=== PATIENT | female | born 1975 | race Caucasian/White ===

== ENCOUNTER 2017-08-02 15:06 | Emergency (ER) | payer OTHER ==
[~2017-08-02] VITALS: Ht 154.9 cm; Wt 78.0 kg
[2017-08-02 15:15] VITALS: BP 137/38
[2017-08-02] MEDS ORDERED: AMOXICILLIN 50500 MG PO (15:22)
== END 2017-08-02 15:33 | disposition home or self-care (01) ==
LOC: M.ERS 15:06
DX: K08.89 Other specified disorders of teeth and supporting structures (principal); Z88.8 Allergy status to other drugs, medicaments and biological substances

== ENCOUNTER 2018-04-12 07:44 | Emergency (ER) | payer OTHER ==
[~2018-04-12] VITALS: Ht 160 cm; Wt 68.0 kg
[~2018-04-12 07:44] MED LIST: AMOXICILLIN 50500 MG PO
[2018-04-12 07:53] VITALS: BP 137/65
[2018-04-12] MEDS ORDERED: NORCO 5-325 TA1 EACH PO (08:08)
[2018-04-12] MEDS ORDERED: IBUPROFEN 800800 M1 PO (08:08)
[2018-04-12] MEDS ORDERED: FLEXERIL PO (08:08)
== END 2018-04-12 08:20 | disposition home or self-care (01) ==
LOC: M.ERS 07:44
DX: S39.012A Strain of muscle, fascia and tendon of lower back, initial encounter (principal); Z98.890 Other specified postprocedural states; Z88.8 Allergy status to other drugs, medicaments and biological substances; X58.XXXA Exposure to other specified factors, initial encounter; Y93.89 Activity, other specified; Y92.89 Other specified places as the place of occurrence of the external cause; Y99.8 Other external cause status

== ENCOUNTER → 2018-08-10 | Emergency (ER) | payer OTHER ==
[~2018-08-10] VITALS: Ht 154.9 cm; Wt 82.6 kg
[~2018-08-10] MED LIST changes: +FLEXERIL PO; +IBUPROFEN 800800 M1 PO; +KEFLEX500 M1 PO; +NORCO 5-325 TA1 EACH PO; +XARELTO20 MG PO
[2018-08-10 11:08] VITALS: BP 186/74
== END ==
LOC: M.ERS 10:41
DX: K04.7 Periapical abscess without sinus (principal); F17.210 Nicotine dependence, cigarettes, uncomplicated; Z88.8 Allergy status to other drugs, medicaments and biological substances; Z98.890 Other specified postprocedural states

== ENCOUNTER 2018-11-09 12:43 | Emergency (ER) | payer OTHER ==
[~2018-11-09] VITALS: Ht 154.9 cm; Wt 77.1 kg
[2018-11-09] MEDS ORDERED: NORCO 5-325 TA1 EAC1 PO (13:11)
[2018-11-09 13:22] VITALS: BP 138/90
== END 2018-11-09 13:23 | disposition home or self-care (01) ==
LOC: M.ERS 12:43
DX: T23.001A Burn of unspecified degree of right hand, unspecified site, initial encounter (principal); X19.XXXA Contact with other heat and hot substances, initial encounter; Y93.89 Activity, other specified; Y92.89 Other specified places as the place of occurrence of the external cause; Y99.8 Other external cause status; Z88.8 Allergy status to other drugs, medicaments and biological substances

== ENCOUNTER 2018-11-19 08:00 | Emergency (ER) | payer OTHER ==
[~2018-11-19] VITALS: Ht 154.9 cm; Wt 73.5 kg
[~2018-11-19 08:00] MED LIST changes: +NORCO 5-325 TA1 EAC1 PO
[2018-11-19 08:20] LABS: HEMATOCRIT 36.2 % (37.0-47.0); HEMOGLOBIN 11.2 gm/dL (12.0-15.0); MCH 22.8 pg (26.0-34.0); MCV 73.6 fL (80.0-100.0); NUCLEATED RBCS 0 /100WBC; PLATELET COUNT* 383 thou/uL (150-400); RBC 4.92 mil/uL (4.20-5.00); RDW-CV 17.3 % (10.5-14.5); WBC 10.9 thou/uL (4.0-11.0)
[2018-11-19 08:31] LABS: PROTIME 10.3 Seconds (9.20-11.50)
[2018-11-19 08:34] LABS: ALBUMIN 3.8 g/dL (3.4-5.0); ALKALINE PHOSPHATASE 85 U/L (46-116); ANION GAP 19 mmol/L (7-16); BUN 8 mg/dL (7-18); CALCIUM 9.2 mg/dL (8.5-10.1); CHLORIDE 100 mmol/L (98-107); CO2 21 mmol/L (21-32); CREATININE 1.1 mg/dL (0.6-1.3); GLUCOSE 126 mg/dL (70-99); SGOT 17 U/L (15-37); SGPT 24 U/L (30-65); SODIUM 140 mmol/L (136-145); TOTAL BILIRUBIN 0.1 mg/dL (<0.1-1.0); TOTAL PROTEIN 7.8 g/dL (6.4-8.2); TROPONIN-I LEVEL <0.06 ng/mL (<0.06)
[2018-11-19 08:35] LABS: POTASSIUM 2.6 mmol/L (3.5-5.1)
[2018-11-19 08:53] LABS: ABSOLUTE LYMPHOCYTES 3.3 thou/uL (0.8-5.3); ABSOLUTE MONOCYTES 0.7 thou/uL (0.0-1.2); ANISOCYTOSIS 2+; HYPOCHROMASIA 1+; MICROCYTES 1+
[2018-11-19 09:07] VITALS: BP 190/75
--- NOTE | 2018-11-19 15:29 | EKG ---
[place] [address] ELECTROCARDIOGRAM REPORT Name: DAVONTE VENTURA Room: [facility]#: [id number] Admission: 11/19/18 Attend Phys: Discharge: 11/19/18 Date of : 75 Report #: [id number] THIS REPORT FOR: //name// 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1975 Requested By: Kiko Darnell Order Number: [id number] MD: Augie Barajas Measurements Intervals [place] Rate: 100 P: 69 MT: 129 QRS: -12 QRSD: 93 T: 75 QT: 388 QTc: 501 Interpretive Statements Sinus tachycardia Probable anteroseptal infarct, old Minimal ST depression, lateral leads No previous ECG available for comparison Electronically Signed On 11-19-2018 15:29:26 CDT by Augie Barajas [email or web address] <ELECTRONICALLY SIGNED> By: Augie Barajas MD, [facility] 11/19/18 1529 0 0 Augie Barajas MD, FACC /EPI
== END 2018-11-19 09:07 | disposition home or self-care (01) ==
LOC: M.ERS 08:00
PROVIDERS: Family Medicine
DX: F41.0 Panic disorder [episodic paroxysmal anxiety] (principal); E87.6 Hypokalemia; Z98.890 Other specified postprocedural states; Z88.8 Allergy status to other drugs, medicaments and biological substances

== ENCOUNTER 2019-07-29 12:24 | Emergency (ER) | payer OTHER ==
[~2019-07-29] VITALS: Ht 157.5 cm; Wt 78.0 kg
[2019-07-29] MEDS ORDERED: HYDROCHLOROTHIA25 M2 PO (12:40)
[2019-07-29] MEDS ORDERED: NORVASC 2.5 MG2.5 M1 PO (12:40)
[2019-07-29] MEDS ORDERED: LIPITOR20 MG PO (12:40)
[2019-07-29 12:52] LABS: ABSOLUTE BASOPHILS 0.2 thou/uL (0.0-0.2); ABSOLUTE EOSINOPHILS 0.2 thou/uL (0.0-0.7); ABSOLUTE LYMPHOCYTES 1.9 thou/uL (0.8-5.3); ABSOLUTE MONOCYTES 0.8 thou/uL (0.0-1.2); ABSOLUTE NEUTROPHILS 10.2 thou/uL (1.6-8.1); BASOPHILS 1.2 %; EOSINOPHILS 1.3 %; HEMATOCRIT 36.9 % (37.0-47.0); LYMPHOCYTES 14.6 %; MCH 24.9 pg (26.0-34.0); MCHC 32.6 g/dL (28.0-37.0); MCV 76.4 fL (80.0-100.0); MONOCYTES 6.3 %; MPV 6.8 fl. (7.2-11.1); NUCLEATED RBCS 0 /100WBC; PLATELET COUNT* 357 thou/uL (150-400); POLYS 76.6 %; RBC 4.83 mil/uL (4.20-5.00); RDW-CV 22.3 % (10.5-14.5); WBC 13.3 thou/uL (4.0-11.0)
[2019-07-29 13:01] LABS: CALCIUM 8.9 mg/dL (8.5-10.1); CREATININE 0.9 mg/dL (0.6-1.3); POTASSIUM 3.7 mmol/L (3.5-5.1)
[2019-07-29 13:05] LABS: ALBUMIN 3.9 g/dL (3.4-5.0); TOTAL BILIRUBIN 0.3 mg/dL (<0.1-1.0); TOTAL PROTEIN 7.9 g/dL (6.4-8.2)
[2019-07-29 13:10] LABS: URINE BILIRUBIN NEGATIVE (Negative); URINE BLOOD TRACE (Negative); URINE CLARITY CLEAR; URINE COLOR YELLOW; URINE GLUCOSE-RANDOM NEGATIVE (Negative); URINE KETONES NEGATIVE (Negative); URINE LEUKOCYTES-REFLEX NEGATIVE (Negative); URINE NITRITE-REFLEX NEGATIVE (Negative); URINE PROTEIN 2+ (Negative); URINE SPECIFIC GRAVITY >= 1.030 (1.005-1.030); URINE UROBILINOGEN 0.2 E.U./dl (0.2-1.0)
[2019-07-29 13:14] LABS: BACTERIA-REFLEX 1-9 Few /HPF (None Seen); CRYSTALS None Seen /LPF (None Seen); FINE GRANULAR CASTS 0-3 Few /LPF (None Seen); HYALINE CASTS 4-10 Moderate /LPF (None Seen); MUCUS 4-6 Moderate strn/LPF (None Seen); SQUAMOUS >10 Many /LPF (0-3); URINE RBC 0-2 Rare /HPF (0-2); URINE WBC-REFLEX 0-5 Rare /HPF (0-5)
[2019-07-29 13:39] LABS: ANISOCYTOSIS 1+; PLATELET ESTIMATE ADEQUATE
[2019-07-29] MEDS ORDERED: ONDANSETRON HCL4 M2 PO (13:55)
[2019-07-29] MEDS ORDERED: ZANAFLEX4 MG PO (13:55)
[2019-07-29] MEDS ORDERED: NABUMETONE 750750 M1 PO (13:55)
[2019-07-29 14:14] VITALS: BP 148/79
== END 2019-07-29 14:15 | disposition home or self-care (01) ==
LOC: M.ERS 12:24
PROVIDERS: Nurse Practitioner Family
DX: R10.9 Unspecified abdominal pain (principal); Z98.890 Other specified postprocedural states; Z88.8 Allergy status to other drugs, medicaments and biological substances

== ENCOUNTER 2019-11-21 10:15 | Emergency (ER) | payer OTHER ==
[~2019-11-21] VITALS: Ht 154.9 cm; Wt 78.0 kg
[~2019-11-21 10:15] MED LIST changes: +HYDROCHLOROTHIA25 M2 PO; +LIPITOR20 MG PO; +NABUMETONE 750750 M1 PO; +NORVASC 2.5 MG2.5 M1 PO; +ONDANSETRON HCL4 M2 PO; +ZANAFLEX4 MG PO
[2019-11-21 10:20] VITALS: BP 154/80
[2019-11-21] MEDS ORDERED: TYLENOL WITH CO1 TA1 PO (10:53)
[2019-11-21] MEDS ORDERED: AMOXICILLIN 50500 MG PO (10:53)
== END 2019-11-21 11:24 | disposition home or self-care (01) ==
LOC: M.ERS 10:15
DX: K08.89 Other specified disorders of teeth and supporting structures (principal); I10 Essential (primary) hypertension; F17.210 Nicotine dependence, cigarettes, uncomplicated; Z98.890 Other specified postprocedural states; Z88.8 Allergy status to other drugs, medicaments and biological substances

== ENCOUNTER 2019-12-11 09:19 | Emergency (ER) | payer OTHER ==
[~2019-12-11] VITALS: Ht 154.9 cm; Wt 79.8 kg
[~2019-12-11 09:19] MED LIST changes: +TYLENOL WITH CO1 TA1 PO
[2019-12-11 09:25] VITALS: BP 196/73
[2019-12-11] MEDS ORDERED: PENICILLIN VK500 M1 PO (09:31)
[2019-12-11] MEDS ORDERED: IBUPROFEN 800800 M1 PO (09:31)
[2019-12-11] MEDS ORDERED: NORCO 5-325 TA1 EAC1 PO (09:31)
== END 2019-12-11 09:45 | disposition home or self-care (01) ==
LOC: M.ERS 09:19
DX: K02.9 Dental caries, unspecified (principal); I10 Essential (primary) hypertension; F17.210 Nicotine dependence, cigarettes, uncomplicated; Z88.8 Allergy status to other drugs, medicaments and biological substances; Z98.890 Other specified postprocedural states

== ENCOUNTER 2020-02-08 13:36 | Emergency (ER) | payer OTHER ==
[~2020-02-08] VITALS: Ht 154.9 cm; Wt 78.0 kg
[~2020-02-08 13:36] MED LIST changes: +PENICILLIN VK500 M1 PO
[2020-02-08] MEDS ORDERED: ZPAK PO (14:16)
[2020-02-08] MEDS ORDERED: LIPITOR 20 MG T20 M1 PO (14:16)
[2020-02-08] MEDS ORDERED: LISINOPRIL2.5 M1 PO (14:16)
[2020-02-08] MEDS ORDERED: HYDROCHLOROTHIA25 M1 PO (14:16)
[2020-02-08 14:50] VITALS: BP 215/80
--- NOTE | 2020-02-10 11:11 | EKG ---
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1975 Requested By: Tanja Casillas Order Number: [id number] Irena MD: Augie Barajas Measurements Intervals [place] Rate: 81 P: 50 HI: 122 QRS: 3 QRSD: 98 T: 98 QT: 386 QTc: 448 Interpretive Statements Sinus rhythm LVH with secondary repolarization abnormality Compared to ECG 11/19/2018 08:11:26 Left ventricular hypertrophy now present Early repolarization now present Sinus tachycardia no longer present Myocardial infarct finding no longer present ST (T wave) deviation no longer present Electronically Signed On 02-10-2020 11:10:25 CDT by Augie Barajas [email or web address] <ELECTRONICALLY SIGNED> By: Augie Barajas MD, FACC 02/10/20 1110 1347 1347 Augie Barajas MD, FAC /EPI
== END 2020-02-08 14:53 | disposition home or self-care (01) ==
LOC: M.ERS 13:36
DX: J98.8 Other specified respiratory disorders (principal); I10 Essential (primary) hypertension; E78.5 Hyperlipidemia, unspecified; F17.210 Nicotine dependence, cigarettes, uncomplicated; Z98.890 Other specified postprocedural states; Z88.8 Allergy status to other drugs, medicaments and biological substances

== ENCOUNTER 2020-02-14 19:42 | Emergency (ER) | payer OTHER ==
[~2020-02-14] VITALS: Ht 154.9 cm; Wt 78.0 kg
[~2020-02-14 19:42] MED LIST changes: +HYDROCHLOROTHIA25 M1 PO; +LIPITOR 20 MG T20 M1 PO; +LISINOPRIL2.5 M1 PO; +ZPAK PO
[2020-02-14] MEDS ORDERED: PREDNISONE 20 M20 M1 PO (20:09)
[2020-02-14] MEDS ORDERED: PROMETH-CODEIN 65 ML PO (20:09)
[2020-02-14 20:26] VITALS: BP 185/97
== END 2020-02-14 20:26 | disposition home or self-care (01) ==
LOC: M.ERS 19:42
DX: J40 Bronchitis, not specified as acute or chronic (principal); I10 Essential (primary) hypertension; F17.210 Nicotine dependence, cigarettes, uncomplicated; Z98.890 Other specified postprocedural states; Z88.8 Allergy status to other drugs, medicaments and biological substances

== ENCOUNTER 2020-04-12 10:54 | Emergency (ER) | payer OTHER ==
[~2020-04-12] VITALS: Ht 154.9 cm; Wt 79.4 kg
[~2020-04-12 10:54] MED LIST changes: +PREDNISONE 20 M20 M1 PO; +PROMETH-CODEIN 65 ML PO
[2020-04-12 11:16] LABS: URINE BILIRUBIN NEGATIVE (Negative); URINE BLOOD 3+ (Negative); URINE CLARITY CLEAR; URINE COLOR YELLOW; URINE GLUCOSE-RANDOM NEGATIVE (Negative); URINE KETONES NEGATIVE (Negative); URINE LEUKOCYTES-REFLEX 1+ (Negative); URINE NITRITE-REFLEX NEGATIVE (Negative); URINE PROTEIN TRACE (Negative); URINE SPECIFIC GRAVITY 1.025 (1.005-1.030); URINE UROBILINOGEN 0.2 E.U./dl (0.2-1.0)
[2020-04-12 11:25] LABS: SQUAMOUS 4-10 Moderate /LPF (0-3); URINE RBC >20 Many /HPF (0-2); URINE WBC-REFLEX 6-15 Few /HPF (0-5)
[2020-04-12 11:26] LABS: BACTERIA-REFLEX >30 Many /HPF (None Seen); CRYSTALS None Seen /LPF (None Seen); HYALINE CASTS 0-3 Few /LPF (None Seen); MUCUS 4-6 Moderate strn/LPF (None Seen)
[2020-04-12 11:30] LABS: ABSOLUTE EOSINOPHILS 0.1 thou/uL (0.0-0.7); ABSOLUTE LYMPHOCYTES 3.1 thou/uL (0.8-5.3); ABSOLUTE MONOCYTES 1.6 thou/uL (0.0-1.2); ABSOLUTE NEUTROPHILS 10.8 thou/uL (1.6-8.1); BASOPHILS 0.2 %; EOSINOPHILS 0.5 %; HEMATOCRIT 37.5 % (37.0-47.0); HEMOGLOBIN 12.1 gm/dL (12.0-15.0); MCHC 32.2 g/dL (28.0-37.0); MCV 77.8 fL (80.0-100.0); MONOCYTES 10.5 %; MPV 7.3 fl. (7.2-11.1); NUCLEATED RBCS 0 /100WBC; PLATELET COUNT* 402 thou/uL (150-400); POLYS 68.8 %; RBC 4.82 mil/uL (4.20-5.00); WBC 15.7 thou/uL (4.0-11.0)
[2020-04-12 11:37] LABS: CALCIUM 9.2 mg/dL (8.5-10.1); CREATININE 1.1 mg/dL (0.6-1.3); POTASSIUM 3.1 mmol/L (3.5-5.1)
[2020-04-12 11:42] LABS: TOTAL BILIRUBIN 0.6 mg/dL (<0.1-1.0); TOTAL PROTEIN 7.9 g/dL (6.4-8.2)
[2020-04-12] MEDS ORDERED: NORCO 5-325 TA1 EAC2 PO (13:03)
[2020-04-12] MEDS ORDERED: ZOFRAN ODT4 MG DISSOLVE (13:03)
[2020-04-12] MEDS ORDERED: KEFLEX500 M1 PO (13:03)
[2020-04-12 13:14] VITALS: BP 140/54
== END 2020-04-12 13:14 | disposition home or self-care (01) ==
LOC: M.ERS 10:54
PROVIDERS: Emergency Medicine Emergency Medical Services
DX: N12 Tubulo-interstitial nephritis, not specified as acute or chronic (principal); R11.2 Nausea with vomiting, unspecified; I10 Essential (primary) hypertension; F17.210 Nicotine dependence, cigarettes, uncomplicated; Z98.890 Other specified postprocedural states; Z88.8 Allergy status to other drugs, medicaments and biological substances

== ENCOUNTER 2021-04-20 19:35 | Emergency (ER) | payer MEDICAID ==
[~2021-04-20] VITALS: Ht 154.9 cm; Wt 68.0 kg
[~2021-04-20 19:35] MED LIST changes: +NORCO 5-325 TA1 EAC2 PO; +ZOFRAN ODT4 MG DISSOLVE
[2021-04-20] MEDS ORDERED: COZAAR 25 MG TA25 M1 PO (19:51)
[2021-04-20] MEDS ORDERED: MEDROLDOSEPACK PO (20:05)
[2021-04-20] MEDS ORDERED: NAPROSYN500 MG PO (20:05)
[2021-04-20] MEDS ORDERED: HYDROCODON-ACE1 EAC7 PO (20:10)
[2021-04-20 20:16] VITALS: BP 158/60
== END 2021-04-20 20:17 | disposition home or self-care (01) ==
LOC: M.ERS 19:35
DX: M54.32 Sciatica, left side (principal); I10 Essential (primary) hypertension; F17.210 Nicotine dependence, cigarettes, uncomplicated; Z98.890 Other specified postprocedural states; Z79.899 Other long term (current) drug therapy; Z88.8 Allergy status to other drugs, medicaments and biological substances

== ENCOUNTER 2021-09-08 10:21 | Emergency (ER) | payer OTHER, MEDICAID ==
[~2021-09-08] VITALS: Ht 157.5 cm; Wt 73.5 kg
[~2021-09-08 10:21] MED LIST changes: +COZAAR 25 MG TA25 M1 PO; +HYDROCODON-ACE1 EAC7 PO; +MEDROLDOSEPACK PO; +NAPROSYN500 MG PO
[2021-09-08] MEDS ORDERED: NORVASC5 MG PO (10:35)
[2021-09-08] MEDS ORDERED: MEDROLDOSEPACK PO (10:51)
[2021-09-08 11:06] VITALS: BP 178/74
--- NOTE | 2021-09-08 13:19 | EKG ---
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 : 1975 Requested By: Mike Macdonald Order Number: [id number] MD: Augie Barajas Measurements Intervals [place] Rate: 86 P: 58 FL: 128 QRS: 2 QRSD: 92 T: 48 QT: 381 QTc: 456 Interpretive Statements Sinus rhythm Probable left atrial enlargement Compared to ECG 02/08/2020 13:47:19 Left ventricular hypertrophy no longer present Early repolarization no longer present Electronically Signed On 09-08-2021 13:19:08 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
== END 2021-09-08 11:06 | disposition home or self-care (01) ==
LOC: M.ERS 10:21
DX: G50.0 Trigeminal neuralgia (principal); I10 Essential (primary) hypertension; F17.210 Nicotine dependence, cigarettes, uncomplicated; Z98.890 Other specified postprocedural states; Z79.899 Other long term (current) drug therapy; Z88.8 Allergy status to other drugs, medicaments and biological substances

== ENCOUNTER 2021-09-10 10:40 | Emergency (ER) | payer OTHER, MEDICAID ==
[~2021-09-10] VITALS: Ht 157.5 cm; Wt 73.5 kg
[~2021-09-10 10:40] MED LIST changes: +NORVASC5 MG PO
[2021-09-10] MEDS ORDERED: AMOX TR-K CLV1 EAC4 PO (11:44)
[2021-09-10] MEDS ORDERED: HYDROCODON-ACE1 EAC7 PO (11:44)
[2021-09-10 11:48] VITALS: BP 205/71
== END 2021-09-10 11:50 | disposition home or self-care (01) ==
LOC: M.ERS 10:40
DX: M26.603 Bilateral temporomandibular joint disorder, unspecified (principal); I10 Essential (primary) hypertension; F17.210 Nicotine dependence, cigarettes, uncomplicated; Z79.899 Other long term (current) drug therapy; Z88.8 Allergy status to other drugs, medicaments and biological substances